=== PATIENT | male | born 1955 | race Two or more races ===

== ENCOUNTER 2017-03-02 06:27 | Day surgery (SDC) | payer OTHER ==
[~2017-03-02] VITALS: Ht 167.6 cm; Wt 78.0 kg
[2017-03-02] MEDS ORDERED: DOXAZOSIN (08:17)
[2017-03-02] MEDS ORDERED: VITAMIN D3 (08:17)
[2017-03-02] MEDS ORDERED: ATORVASTATIN (08:17)
[2017-03-02] MEDS ORDERED: AEROSPAN (08:17)
[2017-03-02] MEDS ORDERED: ESCITALOPRAM (08:17)
[2017-03-02] MEDS ORDERED: METFORMIN (08:17)
[2017-03-02] MEDS ORDERED: OMEPRAZOLE (08:17)
[2017-03-02] MEDS ORDERED: AMLODIPINE (08:17)
[2017-03-02] MEDS ORDERED: HCTZ (08:17)
[2017-03-02 08:33] VITALS: BP 131/61; PULSE 65; RESP 18; Ht 167.6 cm; Wt 78.0 kg
[2017-03-02] MEDS ORDERED: PROPOFOL 60 ML ONE (08:52)
[2017-03-02] MEDS ORDERED: LIDOCAINE 2% (SDV) 5 ML INJ ONE (08:53)
--- NOTE | 2017-03-02 09:53 | GILP ---
DATE OF PROCEDURE: 03/02/2017 PROCEDURE: Colonoscopy. PREOPERATIVE DIAGNOSIS: The patient has a history of colon polyps in the past, rule out recurrence of colon polyps, anemia as well, rule out any source that could explain GI bleeding. POSTOPERATIVE DIAGNOSES: Occasional diverticula noted in the colon. No evidence of polyps. No sherri dence of AV malformation noted. Minimal external hemorrhoids were noted. DESCRIPTION OF PROCEDURE: After informed written consent was obtained, the patient was asked to lie on the left lateral side. Intravenous anesthesia was given by anesthesiologist, Dr. Ruiz. When th e patient became somnolent, the Olympus video colonoscope was introduced into the rectum, and scope was advanced all the way to the cecum. Entire colon appeared normal except occasional diverticula n oted, small in size, very few in number. No colitis, no neoplasm of any other kind noted. After ex amining the appendiceal opening and the ileocecal valve, scope was withdrawn. On the way out, no ad ditional abnormalities detected. Retroflexion was performed. No hemorrhoids noted. On the way out , minimal external hemorrhoids were noted, and the procedure was terminated. PLAN: Recommend repeat colonoscopy in 10 years. Dictated By: VAISHALI CONKLIN/MELISSA Conf#: [id number] DID#: [id number] CC: Jennifer Howard MD;*EndCC*
[2017-03-02 09:54] VITALS: BP 106/62; RESP 20
--- NOTE | 2017-03-02 09:59 | GILP ---
DATE OF PROCEDURE: PROCEDURE: Esophagogastroduodenoscopy. PREOPERATIVE DIAGNOSIS: Patient is presenting with a history of chronic abdominal discomfort, heart burn. Rule out peptic ulcer disease, rule out esophagitis. Patient also has anemia. Rule out sour ce of bleeding from the upper gastrointestinal tract. POSTOPERATIVE DIAGNOSES: 1. Diffuse patchy esophagitis. 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 2. Multiple areas of erosions in the stomach. 3. Nodularity of the gastric fundus. Biopsies were done as follows. DESCRIPTION OF PROCEDURE: After informed written consent was obtained, the patient was asked to lie on the left lateral side. Intravenous anesthesia was given by the anesthesiologist, Dr. Ruiz. Whe n the patient became somnolent, the Olympus video upper endoscope was introduced into the oropharynx , then into the esophagus. Several areas of erythema were noted in the esophagus. One area of smal l arteriovenous malformations were noted in the mid esophagus. Random biopsies were obtained to rul e out Angella of the esophagus because there were 2 areas of white patches noted. The scope at this time was advanced into the stomach. Some superficial nodular mucosa was noted in the mid body and fundus of the stomach. Some of the folds appeared to be rather prominent. Biopsies were done from the antrum, the lesser curvature, and the fundus. All of them were put in the same bottle to rule o ut H. pylori infection and MALT lymphoma. Duodenum appeared normal up to the end of the third porti on. The scope at this time was withdrawn, no additional abnormalities were detected and the procedu re was terminated. PLAN: Recommend proton pump inhibitor therapy. Wait for the pathology report. Dictated By: VAISHALI CONKLIN/NTS Conf#: [id number] DID#: [id number] CC: Jennifer Howard MD;*EndCC*
== END 2017-03-02 12:46 | disposition home or self-care (01) ==
LOC: GIL 06:27
PROVIDERS: ATTEND Internal Medicine Gastroenterology
DX: K20.8 Other esophagitis (principal); E11.9 Type 2 diabetes mellitus without complications; K57.30 Diverticulosis of large intestine without perforation or abscess without bleeding
CPT/HCPCS: 43239; 45378; 88305; 88312; 88313; Z7610

== ENCOUNTER → 2017-08-07 | Outpatient (CLI) | payer MEDICARE, OTHER ==
[~2017-08-07] MED LIST: AEROSPAN; AMLODIPINE; ATORVASTATIN; DOXAZOSIN; ESCITALOPRAM; HCTZ; METFORMIN; OMEPRAZOLE; VITAMIN D3
--- NOTE | 2017-08-07 14:48 | HKNOTE ---
DATE OF SERVICE: MAIN COMPLAINT: Pain in the left hip. HISTORY OF MAIN COMPLAINT: Mr. Moon is a 62-year-old male who complains of pain in his left "hi p." The pain started suddenly while he was standing at the counter of an auto parts store. He twis jatin his trunk to look around and he had a sudden onset of pain over the left greater trochanter. He had never had such a pain before. He had to hold onto the counter for a few minutes until the pain receded a little before he could get going. He was able to get back to his car, went home and spen t the rest of the day in bed. He ice packed the area and he took "pain medication" that he had at h ome. He had a cane at home, which he started using immediately and he had to use it for about 5 day s. He had numbness and tingling in his left leg since then. The pain is not constant anymore, but is i ntermittent. He saw Dr. Irby who order an MRI scan of his hips as well as his pelvis and referred him to me for further evaluation and treatment. PRESENT COMPLAINTS: The pain in the left hip is localized mainly over the left greater trochanter. There is no groin pain at all. He has no groin pain in either hip at all. He does get some pain i n the lower back. He can walk about 3 blocks at a time now without the cane. He does limp when he is in pain. His leg lengths feel equal. He does not have a shoe lift. He can clip his toenails an d tie his shoelaces. SPORTING ACTIVITIES: None. PAST ORTHOPEDIC HISTORY: Repair of biceps tendon in 2010, carpal tunnel surgery 2011. PRIOR CORTISONE INTAKE: Had 1 cortisone injection in the past. ALCOHOL INTAKE: Moderate. OTHER JOINT PROBLEMS: Right shoulder. PRIOR BLOOD TESTS FOR ARTHRITIS: None. PRIOR INJURIES TO HIPS OR KNEES: None. WORK STATUS: Patient is retired. 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 PAST MEDICAL HISTORY: 1. Hypertension. 2. Asthma. 3. Diabetes type 2. PAST SURGICAL HISTORY: 1. Repair and biceps tendon by Dr. Arnold 2010. 2. Carpal tunnel surgery in 2011. DRUG ALLERGIES: NONE. MEDICATIONS: 1. Ventolin. 2. Buspirone. 3. Qvar. 4. Breo Ellipta. 5. Atorvastatin. 6. Aerospan. 7. Doxazosin. 8. Tolnaftate. 9. Metformin. 10. Escitalopram. 11. Amlodipine. 12. Viagra. 13. Tramadol. FAMILY HISTORY: Diabetes, both mother and father. Father had a stroke. SYSTEMS REVIEW: Gets dizzy spells. Heartburn. Poor appetite. Numbness and tingling in the in bot h legs. Gait disturbance. Hypertension. Difficulty breathing due to asthma. HABITS: Patient smokes 2 packs of cigarettes daily. Alcohol intake 3-4 beverages per month. PHYSICAL EXAMINATION GENERAL: The patient is a fit-looking and youthful 62-year-old male. VITAL SIGNS: Height 5 feet 6 inches, weight 170 pounds, blood pressure 120/55, temperature 98.8. BACK: Dynamic pain assessment reveals a pain free range of motion in flexion, extension, lateral be nding, and rotation. There is no lumbar paraspinal muscle spasm. The pelvis is level. Facet stress test is negative bilaterally. Palpation of the spine demonstrates no tenderness of the spinous proce sses, facet joints, sacroiliac joint, sciatic notch, or posterior thigh. The patient's pain is repr oduced at the limits of all motions of the lumbar spine, but most especially by flexion of the lumba r spine. NEUROLOGIC: Motor examination reveals no muscle deficit in the lower extremities. Deep tendon refle xes in the lower extremities: Right knee jerk 2+, left knee jerk 2+, right ankle jerk 2+, left ankl e jerk 2+. Straight leg raising/sciatic stretch test is negative bilaterally at 80 degrees. Lasegue and SPARKLE tests are negative. HIP EXAMINATION: Both hips have a full range of motion without any pain in either hip whatsoever. Quite severe tenderness over the left greater trochanter. No tenderness over the right greater troc hanter. RIGHT KNEE: The right knee shows normal alignment. Active and passive extension is 0 degrees. Activ e and passive flexion is 135 degrees. The medial and lateral collateral ligaments and cruciate ligam ents are intact. Timoteo test is negative. There is no effusion, tenderness, scarring, crepitus, or cysts. The patella tracks normally. There is no tenderness on the articular surface of the patella o r in the patellar groove. The Q angle is normal. LEFT KNEE: The left knee shows normal alignment. Active and passive extension is 0 degrees. Active and passive flexion is 135 degrees. The medial and lateral collateral ligaments and cruciate ligamen ts are intact. Timoteo test is negative. There is no effusion, tenderness, scarring, crepitus, or cy sts. The patella tracks normally. There is no tenderness on the articular surface of the patella or in the patellar groove. The Q angle is normal. IMAGING: Plain x-rays of the pelvis and hips obtained today at the [facility] we re reviewed. Both hips show approximately 25% loss of joint space, symmetrically. There are actual ly no secondary changes of osteoarthritis such as osteophytes or sclerosis or cyst. An MRI scan of the pelvis and left hip obtained on 08/06/[address] Roca as showing "mo derate left trochanteric bursitis was uniform enhancing margins of the trochanteric bursa, probably related to inflammatory hyperemia of the bursitis." Mild right hip adductor peritendinitis. Mild osteoarthritis of the right hip. Small subchondral cysts in the anterior column of the right acetab ulum. DIAGNOSES: 1. Trochanteric bursitis of the left hip. 2. Possible sciatica left leg. 3. Hypertension. 4. Asthma. 5. Diabetes type 2. DISCUSSION: Although this patient clearly has trochanteric bursitis, it is somewhat unusual in that his pain can radiate down his left leg together with numbness and tingling in the leg. He also has some pain in the lower back. In addition, his left hip pain is reproduced at the limits of motion of the lumbar spine. Although the MRI scan suggests that there is mild osteoarthritis in the left h ip, he has no groin pain and therefore, it is highly unlikely that the arthritis is of any significa nce. MANAGEMENT: Under sterile conditions, the patient was given injection of 2 mL of Kenalog and 6 mL o f 2% lidocaine into the left trochanteric bursa. He may return for further injection as needed, but not in less than 3 months. He will see me again in 4 weeks' time for reevaluation. Depending on his symptoms and clinical find ings at his next visit, I may order an MRI scan of the lumbar spine. Dictated By: ALONSO LEIGH/MELISSA Conf#: [id number] [facility]#: [id number] CC: Idalia Irby MD;*[facility]*
--- NOTE | 2017-08-07 14:57 | HKNOTE ---
DATE OF SERVICE: 08/07/2017 Idalia Irby MD. [address] [place] [address] RE: Trever Moon. Dear Dr. Irby: Thank you for referring Trever Moon, who was seen in my office on 08/07/2017 complaining of pain in his left hip. Although there is some degenerative change in his left hip joint, his symptoms are totally not relat ed to a hip joint problem. Clinically, he has quite severe trochanteric bursitis of the left hip, confirmed by MRI. In addition, he has symptoms and clinical findings that suggest a possible lumbar radiculopathy. He was given a cortisone injection into the trochanteric bursa. He will be seen again in a month's time for reevaluation. I may order an MRI scan of the lumbar spi ne. Enclosed is a copy of my office notes for your records. With warmest regards, Dictated By: ALONSO LEIGH/MELISSA Conf#: [id number] DID#: [id number]
--- NOTE | 2017-08-07 16:54 | RADRPT ---
PROCEDURE: XR Left Hip and pelvis. CLINICAL INDICATION: Left hip pain. Pelvic pain. TECHNIQUE: Two views. Frontal pelvis and lateral left hip. COMPARISON: No prior studies are available for comparison. FINDINGS: There is no fracture or dislocation. The soft tissues are normal. There are degenerative changes with osteophytes arising from the hip joint margins bilaterally. There is no lytic or blastic lesion. There is no radiopaque foreign body. IMPRESSION: 1. Mild degenerative changes of both hips. 2. Otherwise unremarkable study. RPTAT: QQ .Gino Yanes MD, MD Date Time Electronically viewed and signed by .Gino Yanes MD, MD on 08/07/2017 16:54 .R/
== END | disposition home or self-care (01) ==
LOC: HKI 10:27
DX: M70.62 Trochanteric bursitis, left hip (principal); Y93.89 Activity, other specified; I10 Essential (primary) hypertension; E11.9 Type 2 diabetes mellitus without complications; J45.909 Unspecified asthma, uncomplicated; R20.2 Paresthesia of skin; Z72.0 Tobacco use; Z79.84 Long term (current) use of oral hypoglycemic drugs
CPT/HCPCS: 20610; 73502; G0463

== ENCOUNTER → 2017-09-06 | Outpatient (CLI) | END | disposition home or self-care (01) ==